=== PATIENT | female | born 1960 | race African-American/Black ===

== ENCOUNTER 2016-04-28 10:07 | Emergency (ER) | payer OTHER ==
[~2016-04-28] VITALS: Ht 162.6 cm; Wt 79.1 kg
[~2016-04-28 10:07] MED LIST: FLONASE16 G1 BOTH NARES; MOTRIN800 MG PO; MULTIPLE VITAM1 EAC4 PO; NYSTATIN15 GM TP
[2016-04-28 10:42] LABS: EOSINOPHIL (%) 1.6 % (0-5); EOSINOPHIL COUNT 0.1 K/uL (0-0.3); HEMATOCRIT 38.9 % (36.0-46.0); IMMATURE GRANULOCYTE (%) 0.2 % (0.0-0.7); IMMATURE GRANULOCYTE COUNT 0.1 K/uL; LYMPHOCYTE COUNT 2.3 K/uL (1.0-2.8); MCH 29.5 PG (29.0-34.0); MCHC 33.2 G/DL (30.0-36.0); MCV 88.8 FL (83-99); MEAN PLAT.VOLUME 10.4 uM^3 (9.5-12.4); MONOCYTE (%) 10.2 % (3-12); MONOCYTE COUNT 0.6 K/uL (0-0.8); NEUTROPHIL (%) 50.1 % (45-76); NEUTROPHIL COUNT 3.1 K/uL (1.8-6.4); PLATELET COUNT 261 K/uL (156-360); RBC DIS.WIDTH-CV 12.5 % (11.8-14.6); RBC DIS.WIDTH-SD 39.9 % (39-53); RED BLOOD COUNT 4.38 M/uL (3.80-5.20); WHITE BLOOD COUNT 6.2 K/uL (4.1-10.2)
[2016-04-28 10:56] LABS: CHLORIDE 110 mEq/L (99-109); POTASSIUM 3.9 mEq/L (3.7-5.4); SODIUM 146 mEq/L (136-147)
[2016-04-28 10:57] LABS: D-DIMER ELISA 0.84 mg/L FEU (< 0.57)
[2016-04-28 10:58] LABS: GLUCOSE 88 mg/dL (70-99)
[2016-04-28 10:59] LABS: ANION GAP 13 MEQ/L (2-14)
[2016-04-28 11:00] LABS: TOTAL BILIRUBIN 0.3 mg/dL (0.0-1.0)
[2016-04-28 11:01] LABS: ALKALINE PHOSPHATASE 54 IU/L (3-129)
[2016-04-28 11:02] LABS: GFR ESTIMATE (CALCULATED) > 59 mL/min/
[2016-04-28 11:03] LABS: UREA NITROGEN (BUN) 12 mg/dL (9-23)
[2016-04-28 11:07] LABS: TROP-I INTERPRETATION NEGATIVE; TROPONIN-I 0.04 ng/mL (0.0-0.30)
[2016-04-28 14:19] VITALS: BP 129/71
== END 2016-04-28 14:28 | disposition home or self-care (01) ==
LOC: EME → EDBD 10:07 → EME 14:28
PROVIDERS: Emergency Medicine
DX: R00.2 Palpitations (principal); I47.1 Supraventricular tachycardia; K21.9 Gastro-esophageal reflux disease without esophagitis; Z85.3 Personal history of malignant neoplasm of breast
CPT/HCPCS: 71010; 71275; 80053; 83880; 84484; 85025; 85379; 93005; 99281; 99284